=== PATIENT | female | born 1990 | race Caucasian/White ===

== ENCOUNTER 2019-07-29 11:53 | Emergency (ER) | payer SELFPAY ==
--- NOTE | 2019-07-29 12:05 | ER Document Report ---
ED Medical Screen (RME) - General Chief Complaint: Anxiety Stated Complaint: MED REFIL/ANXIETY Time Seen by Provider: 07/29/19 12:00 Mode of Arrival: Ambulatory Information source: Patient Notes: 29-year-old female presented to ED for complaint of need for refills of her psych meds. She states she has anxiety and all of her medications are empty and the bottles are in the moving truck. She stated she did not know she was go to be moving so soon and did not get her meds refilled. She states her is in the . States she is on Latuda, Lamictal, Xanax, Keppra, Lunesta, and Abilify. She states last night she had a panic attack and a seizure after her panic attack. She does have epilepsy, anxiety, bipolar, depression, adjustment disorder, borderline personality disorder, and ADHD. Denies any thoughts of suicide or harming anybody else. She states she is very shaky and anxious. I have greeted and performed a rapid initial assessment of this patient. A comprehensive ED assessment and evaluation of the patient, analysis of test results and completion of medical decision making process will be conducted by an additional ED providers.
[2019-07-29 12:36] LABS: ABSOLUTE EOSINOPHILS # (AUTO) 0.2 10^3/uL (0.0-0.6); ABSOLUTE MONOCYTES (AUTO) 0.6 10^3/uL (0.1-1.4); ABSOLUTE NEUT (AUTO) 4.1 10^3/uL (1.7-8.2); BASOPHILS % (AUTO) 0.4 % (0-2); EOSINOPHILS % (AUTO) 2.3 % (0-6); HEMATOCRIT 41.6 % (36.0-47.0); HEMOGLOBIN 14.2 g/dL (12.0-15.5); LYMPHOCYTES % (AUTO) 29.2 % (13-45); MEAN CORPUSCULAR HEMOGLOBIN 29.4 pg (27.0-33.4); MEAN CORPUSCULAR HGB CONC 34.1 g/dL (32.0-36.0); MEAN CORPUSCULAR VOLUME 86 fl (80-97); MONOCYTES % (AUTO) 8.6 % (3-13); PLATELET COUNT 272 10^3/uL (150-450); RED BLOOD COUNT 4.83 10^6/uL (3.72-5.28); RED CELL DISTRIBUTION WIDTH 13.8 % (11.5-14.0); SEGMENTED NEUTROPHILS % (AUTO) 59.5 % (42-78); TOTAL CELLS COUNTED % (AUTO) 100 %; WHITE BLOOD COUNT 6.9 10^3/uL (4.0-10.5)
[2019-07-29 12:45] LABS: APPEARANCE,URINE SLIGHTLY-CLOUDY; BILIRUBIN,URINE NEGATIVE (NEGATIVE); COLOR,URINE YELLOW; GLUCOSE, URINE NEGATIVE (NEGATIVE); KETONES,URINE NEGATIVE (NEGATIVE); LEUKOCYTE ESTERASE,URINE NEGATIVE (NEGATIVE); NITRITE,URINE NEGATIVE (NEGATIVE); PROTEIN,URINE NEGATIVE (NEGATIVE); UROBILINOGEN,URINE NEGATIVE mg/dL (<2.0)
--- NOTE | 2019-07-29 12:53 | ER Document Report ---
ED General - General Chief Complaint: Anxiety Stated Complaint: MED REFIL/ANXIETY Time Seen by Provider: 07/29/19 12:00 Primary Care Provider: [facility] [Outside] - Follow up tomorrow Mode of Arrival: Ambulatory Information source: Patient, Friend - over the phone, unable to reach out of state neurologist, psychiatrist or pcps - [facility] Notes: 29 wf reports just moving here to [place] w/ her very unexpectedly and sooner than anticipated this week she thinks meds may be packed somewhre or in truck. she says she's been a little overwhelmed w/ move haven't been sleeping that great, hasn't est medical providers including her neurologisit and psychiatry care here. And, now presenting ambulatory to ED as "has not had any of her medications in 2 days". she reports to RNs initially she needs refills on her latuda, lamictal, xanax, keppra, lunesta, and abilify. she says she thinks she may have had seizure night before last but most concerning to her is having panic attack this am and one last night, which come on suddenly. she says is supportive, and she feels safe w/ him but overwhelmed. denies any r ecent trauma. LMP recent. denies using etoh or other drugs not prescribed or from otc/internet or illicit substances otherwise. she cannot recall initially name of her providers only knows psych was at "[facility] in [place]". [facility] that she doesn't get her care or meds via [place] which jesse found odd if they've veen 5 yr. pt and i ws able to speak w/ on speaker w/ pt confirm, she hasn't been " spouse for few yrs now despite him still considered active in the [employer]. she doesn't have insurance () for some time now since they were for a period. until able to talk to , pt couldn't recall civiliain providers for psych/neuro/pcp, is able to google map the exact location of clinic in [facility] and tell me the name. but there was no answer when i call since now after business hours and no answering service. jesse called provided contact of prior psychiatrist, [facility] also private practice w/o emergency contact number or answering service. seems caring over phone and has little bit better recall of pt's own med history and where she was being seen in [facility]. he hasn't witnessed her having seizure. he says she hasnt' been reporting any SI or thoughts or threats to him, which pt had told me as well. otherwise pt denies f/c/s/n/v or abd pain. - Related Data Allergies/Adverse Reactions: No Known Allergies Allergy (Unverified 07/29/19 12:06) Past Medical History - General Information source: Patient - Social History Smoking Status: Current Every Day Smoker Chew tobacco use (# tins/day): No Frequency of alcohol use: None Drug Abuse: None Family History: Reviewed & Not Pertinent Patient has suicidal ideation: No Patient has homicidal ideation: No Neurological Medical History: Reports: Hx Seizures Review of Systems - Review of Systems Constitutional: No symptoms reported EENT: No symptoms reported Cardiovascular: No symptoms reported, See HPI Respiratory: No symptoms reported Gastrointestinal: No symptoms reported Genitourinary: No symptoms reported Female Genitourinary: No symptoms reported Musculoskeletal: No symptoms reported Skin: No symptoms reported Hematologic/Lymphatic: No symptoms reported Neurological/Psychological: See HPI, Anxiety, Seizure. denies: Confusion, Hallucinations, Sensory change, Homicidal ideation, Weakness, Gait changes, Loss of power, Paralysis, Lost consciousness, Headaches, Speech impairment, Numbness, Suicidal ideation, Tingling, Tremor Physical Exam - Vital signs Vitals: Temp Pulse Resp BP Pulse Ox 98.1 F 130 H 18 138/83 H 96 07/29/19 12:01 07/29/19 12:01 07/29/19 12:01 07/29/19 12:01 07/29/19 12:01 Interpretation: Tachycardic. No: Hypotensive - improved after calmed down w/ discussing plan to re-est care and further after 2mg po ativan, Hypertensive, Ta chypneic, Febrile - General General appearance: Appears well, Alert In distress: None - HEENT Head: Normocephalic, Atraumatic. No: Abrasions, Ecchymosis Eyes: Normal. No: Pale conjunctiva, Scleral icterus Conjunctiva: No: Injected, Purulent discharge Extraocular movements intact: Yes Eyelashes: Normal Pupils: PERRL Nerve palsy: No Tympanic membrane: Normal Mouth/Lips: Normal. No: Lesions Mucous membranes: Dry Neck: Normal - Respiratory Respiratory status: No respiratory distress Chest status: Nontender Breath sounds: Normal Chest palpation: Normal - Cardiovascular Rhythm: Regular, Tachycardia Heart sounds: Normal auscultation Murmur: No Friction rub: No Gallop: None auscultated Pulses: Normal: Radial - symm b/l tachy reg Normal capillary refill: Yes - Abdominal Inspection: Normal. No: Caput medussa, Gravid female, Striae, Wounds Distension: No distension. No: Tympanitic Bowel sounds: Normal Tenderness: Nontender Organomegaly: No organomegaly - Back Back: Normal, Nontender - Extremities General upper extremity: Normal inspection, Nontender, Normal color, Normal ROM, Normal temperature General lower extremity: Normal inspection, Nontender, Normal color, Normal ROM, Normal temperature, Normal weight bearing. No: Chad's sign - Neurological Neuro grossly intact: Yes Cognition: Normal Orientation: AAOx4 Ozark Coma Scale Eye Opening: Spontaneous [place] Coma Scale Verbal: Oriented Imelda Coma Scale Motor: Obeys Commands Imelda Coma Scale Total: 15 Speech: Normal Motor strength normal: LUE, RUE, LLE, RLE Sensory: Normal - Psychological Associated symptoms: Normal affect, Normal mood, Anxious, Psychomotor depression. No: Auditory hallucinations, Circumferential speech, Combative, Confused, Flight of ideas, Paranoid, Psychomotor agitation, Tangential speech, Tearful, Uncooperative, Visual hallucinations - Skin Skin Temperature: Warm Skin Moisture: Dry Skin Color: Normal Course - Re-evaluation Re-evalutation: 08/29/19 01:18 pt understands i cannot be prescriber for antiepileptics w/o confirmation from previous care providers, since i'm not one who will follow her up w/ this. she understands [facility] to call 1st thing in am to have them help her transition her care here and continue meds in the interim. i did give pt 1 dose 2mg ativan here since she has been on 2 mg klonopin for long periods of time. i also suggested to bother her and in general i would rec new providers strongly consider ways to wean slowly bzd since dangerous abruptly stopping and dev tolerance/dependence. also i do not rec lunesta, rather there are so many opportunities to improve her sleep w/ small behavior changes in conjunction w/ pcp. Jesse supplied pt also w/ [place] local resource information will be provided to the patient to include outpatient mental health and substance abuse treatment providers, mobile crisis contact information, and economic resources. - Vital Signs Vital signs: Temp Pulse Resp BP Pulse Ox 98.6 F 108 H 18 115/67 98 07/29/19 17:19 07/29/19 17:19 07/29/19 17:19 07/29/19 17:19 07/29/19 17:19 - Laboratory Result Diagrams: 07/29/19 12:07 07/29/19 12:07 Laboratory results interpreted by me: 07/29/19 12:07 Salicylates < 1.0 L Acetaminophen < 10 L - EKG Interpretation by Me EKG shows normal: Sinus rhythm - rate 90s. qtc pr wnl, axis, voltage wnl. no st elev dep or other patterns of hypertropy or ischemia. When compared to previous EKG there are: Previous EKG unavailable Discharge - Discharge Clinical Impression: Medical care unavailable, Noncompliance, Medication addiction, continuous, Benzodiazepine abuse, continuous Condition: Fair Disposition: HOME, SELF-CARE Instructions: Anxiety ([facility]) Additional Instructions: I have been unable to contact your providers Dr. Nazario, or psychiatrist at [facility] in [place] to confirm your medications. For this reason I will be able to provide you only 2 days worth bridge of your benzodiazepine but I cannot initiate any of the antiepileptics, you must call your prescribing doctors from [place] immediately tomorrow and explained the situation of needing to prescribe supplies of your medications until you can make your alisa ointment with [facility] and they also should refer you for a neurologist here. They also can call each of these facilities to ensure you get the quickest appointment Prescriptions: Alprazolam [Xanax 0.5 mg Tablet] 2 mg PO BID PRN 2 Days #4 tab PRN Reason: Anxiety Referrals: [facility] [Outside] - Follow up tomorrow
[2019-07-29 12:59] LABS: URINE AMPHETAMINES SCREEN NEGATIVE; URINE BARBITURATES SCREEN NEGATIVE; URINE BENZODIAZEPINES SCREEN UNCONFIRMED POSITIVE; URINE COCAINE SCREEN NEGATIVE; URINE MARIJUANA (THC) SCREEN NEGATIVE; URINE METHADONE SCREEN NEGATIVE; URINE PHENCYCLIDINE SCREEN NEGATIVE
[2019-07-29 13:00] LABS: ADD MANUAL MICROSCOPIC YES; ALBUMIN 3.7 g/dL (3.5-5.0); ALKALINE PHOSPHATASE 104 U/L (38-126); ANION GAP 7 (5-19); ASPARTATE AMINO TRANSFERASE 36 U/L (14-36); BACTERIA,URINE TRACE /HPF; BILIRUBIN,DIRECT 0.2 mg/dL (0.0-0.4); BILIRUBIN,TOTAL 0.2 mg/dL (0.2-1.3); BLOOD UREA NITROGEN 14 mg/dL (7-20); CARBON DIOXIDE 26 mmol/L (22-30); CHLORIDE 107 mmol/L (98-107); GLUCOSE 93 mg/dL (75-110); POTASSIUM 4.5 mmol/L (3.6-5.0); TOTAL PROTEIN 6.6 g/dL (6.3-8.2)
[2019-07-29 13:03] LABS: ACETAMINOPHEN < 10 ug/mL (10-30); ALCOHOL < 10 mg/dL (NONE DETECTED); SALICYLATE < 1.0 mg/dL (2.0-20.0)
[2019-07-29] MEDS ORDERED: LORAZEPAM 1 MG TABLET PO ONE (14:14)
--- NOTE | 2019-07-29 15:25 | PSYCHOLOGICAL NOTE ---
Psych Note - Psych Note Date seen by psych provider: 07/29/19 Time seen by psych provider: 13:50 Psych Note: Reason for Consult: Medications patient reports she recently moved and has not had any of her medications in 2 days. She states she needs her latuda, lamictal, xanax, keppra, lunesta, and abilify. She reports she had a panic attack last night and a seizure, and another seizure this morning. Patient reports she has epilepsy, anxiety, bipolar, depression, adjustment disorder, borderline personality disorder, and ADHD. Patient continued to report that she was previously seen in [place] for both neurology and her mental health in civilian clinics however states [place]. she reports that they unexpectedly moved to the new duty station here in [place] she ran out of her medications. She reports that she has been for almost 5 years. Patient is unable to provide her 's Social Security number or ID card to help assist in verifying her medications. She declines offers in contacting her for any information. Clinician attempted to contact [facility] pharmacy to assist in verifying medications. They report the patient's information is not in the system. While we do not have her sponsor's information, her birthdate, name and social would still be in their system. Clinician can attempt to contact patient's reported neurologist; she is unable to provide exact doctor name however states that it is [place] for neurology. The closest clinic is called neurology specialist in [place]. Clinician contacted clinic and on-call physician reports there is no patient in their system with provided demographics. Clinician attempted to contact patient's mother from information patient provided; phone number is not a working number. Clinician was unable to contact her reported psychiatrist, [facility]. This is a private practice without an emergency contact number or answering service. Patient is alert and orientated to person, place, time and circumstance. Mood is overall euthymic with congruent affect. Patient denies suicidal and homicidal ideation. Delusions are absent and behaviors congruent with an intact reality based presentation ie organized and linear thought process. Eye contact is well-maintained. Conversational speech is within normal rate, tone and prosody. Intellectual abilities appear to be within the average range. Attention and concentration are good. Insight, judgment, impulse control are fair. Diagnosis: Deferred Medication recommendations per [facility]'s contracted psychiatrist Dr. Demetrio GOSS are as follows No medication recommendations at this time Impression\plan: Patient is cleared from acute psychiatric services. Patient denies any thoughts of wanting to harm herself or others. Patient came in for assistance in refilling medications that she reported running out of 2 days ago. Clinician notes patient provides conflicting information and verification of her medications is not possible. Patient is advised that the best course of action would be to follow-up with her provider in the morning for a emergency refill while services are transferred to local area. [place]. Since patient reports being new to the area local resource information will be provided to the patient to include outpatient mental health and substance abuse treatment providers, mobile crisis contact information, and economic resources. Dr. Junior was consulted to care management of this patient; attending physicians in agreement with recommendations and disposition.
--- NOTE | 2019-07-29 16:35 | EKG REPORT ---
SEVERITY:- NORMAL ECG - SINUS RHYTHM : Confirmed by: Jesus Agee MD 29-Jul-2019 16:34:22
[2019-07-29 17:21] VITALS: BP 115/67
== END 2019-07-29 17:17 | disposition home or self-care (01) ==
LOC: ER 11:53
DX: F41.9 Anxiety disorder, unspecified (principal); F13.10 Sedative, hypnotic or anxiolytic abuse, uncomplicated; G40.909 Epilepsy, unspecified, not intractable, without status epilepticus; R00.0 Tachycardia, unspecified; F17.200 Nicotine dependence, unspecified, uncomplicated; Z91.14 Patient's other noncompliance with medication regimen
CPT/HCPCS: 36415; 80053; 80307; 81001; 84703; 85025; 93005; 93010; 99284